=== PATIENT | male | born 1965 | race Caucasian/White ===

== ENCOUNTER 2017-06-21 02:48 | Day surgery (SDC) | payer OTHER ==
[~2017-06-21] VITALS: Ht 170.2 cm; Wt 76.7 kg
[~2017-06-21 02:48] MED LIST: CEP500 PO; DIPH-740 PO; FEX60 PO; LOR5 PO
[2017-06-21] MEDS ORDERED: PROPOFOL EMUL(*) 10MG/ML 20 ML 60 ML ONE (06:48)
[2017-06-21] MEDS ORDERED: LIDOCAINE MPF 1% 5 ML VIAL ONE (06:48)
[2017-06-21 11:25] VITALS: BP 125/81
[2017-06-21] MEDS ORDERED: LIDOCAINE/SOD BICARB 8.4% SYR ID ONE (12:05)
[2017-06-21] MEDS ORDERED: NORMOSOL R SOLN(*) 1000 ML BAG 1,000 ML IV PRN (12:05)
[2017-06-21 13:05] VITALS: BP 91/54
[2017-06-21 13:15] VITALS: BP 96/60
[2017-06-21 13:26] VITALS: BP 115/86
[2017-06-21 13:27] VITALS: BP 74/47
[2017-06-21 13:33] VITALS: BP 127/90
== END 2017-06-21 13:54 | disposition home or self-care (01) ==
LOC: OR 02:48
PROVIDERS: ATTEND Family Medicine
DX: Z12.11 Encounter for screening for malignant neoplasm of colon (principal)
CPT/HCPCS: 00812; 45378; J2001; J2704